=== PATIENT | male | born 2000 | race Caucasian/White ===

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

== ENCOUNTER 2019-05-10 10:20 | Emergency (ER) | payer MEDICAID, OTHER ==
[~2019-05-10] VITALS: Ht 165.1 cm; Wt 81.6 kg
[2019-05-10 10:36] VITALS: BP 130/78
--- NOTE | 2019-05-10 10:38 | NUR ---
TRIAGE COMPLETE. VSS. RETURNED TO LOBBY TO WAIT FOR BED IN ED.
--- NOTE | 2019-05-10 11:55 | NUR ---
PT TAKEN TO BED 1 WITH STEADY GAIT.
--- NOTE | 2019-05-10 11:56 | NUR ---
PT C/O PRODUCTIVE COUGH WITH DARK YELLOWISH PHLEGM, SORE THROAT, PRESSURE-LIKE HEADACHE 01/26 X 6 DAYS. DENIES N/V/D AT THIS TIME. VSS; PATIENT POSITIONED FOR COMFORT; HOB ELEVATED; BEDRAILS UP X1; BED DOWN. ER MD MADE AWARE OF PT STATUS.
[2019-05-10] MEDS ORDERED: KETOROLAC 60 MG/2 ML VIAL IM ONE (12:25)
[2019-05-10 12:48] VITALS: BP 122/71
--- NOTE | 2019-05-10 12:52 | NUR ---
Patient discharged with v/s stable. Written and verbal after care instructions given and explained. Patient alert, oriented and verbalized understanding of instructions. Ambulatory with steady gait. All questions addressed prior to discharge. ID band removed. Patient advised to follow up with PMD. Rx of CEPACOL, IBU, PROMETHAZINE given. Patient educated on indication of medication including possible reaction and side effects. Opportunity to ask questions provided and answered.
== END 2019-05-10 12:52 | disposition home or self-care (01) ==
LOC: MED 10:20
DX: B34.9 Viral infection, unspecified (principal); J02.9 Acute pharyngitis, unspecified
CPT/HCPCS: 96372; 99283; J1885